=== PATIENT | male | born 1990 | race Caucasian/White ===

== ENCOUNTER 2016-05-14 01:23 | Emergency (ER) | payer OTHER, BC ==
[~2016-05-14] VITALS: Ht 185.4 cm; Wt 87.8 kg
[~2016-05-14 01:23] MED LIST: FLEXERIL10 MG PO; KEFLEX500 MG PO; LEXAPRO10 MG PO; LORTAB 5-325 M1 EACH PO; NAPROSYN500 MG PO; NOHOMEMEDS
[2016-05-14 01:27] VITALS: BP 123/72
== END 2016-05-14 02:12 | disposition left against medical advice (07) ==
LOC: EME 01:23
DX: R10.31 Right lower quadrant pain (principal); Z53.21 Procedure and treatment not carried out due to patient leaving prior to being seen by health care provider
CPT/HCPCS: 80053; 81003; 85027